=== PATIENT | female | born 1955 | race African-American/Black ===

== ENCOUNTER 2017-01-05 14:54 | Emergency (ER) | payer OTHER ==
[~2017-01-05] VITALS: Ht 154.9 cm; Wt 113.4 kg
[~2017-01-05 14:54] MED LIST: ATENOLOL 50MG T50 M1 PO; B-50 COMPLEX1 EAC1 PO; BUSPIRONE PO; CALCIUM 600 +1 EAC5 PO; CO Q10200 MG PO; CYMBALTA60 MG PO; DIPHENHYDRAMINE25 M3 PO; FISHOIL; FLAX SEED OIL1000 MG; IBUPROFEN 200200 M1 PO; K-DUR 20 MEQ T20 MEQ PO; LISINOPRIL40 MG PO; LORAZEPAM 1 MG T1 M1 PO; NEURONTIN 300M300 M2 PO; NORFLEX100 MG PO; PERCOCET 5-3251 EACH PO; PHENYTOIN SODI100 M3 PO; PRAVASTATIN SOD80 MG PO; SEROQUEL XR 30300 M1 PO; TYLENOL EX-STR500 M2 PO
[2017-01-05] MEDS ORDERED: MOBIC15 MG PO (15:59)
[2017-01-05] MEDS ORDERED: TRAMADOL 50 MG50 MG PO (16:00)
[2017-01-05 16:12] VITALS: BP 131/82
== END 2017-01-05 16:14 | disposition home or self-care (01) ==
LOC: ER 14:54
DX: M16.12 Unilateral primary osteoarthritis, left hip (principal); Z98.890 Other specified postprocedural states

== ENCOUNTER 2020-12-25 02:57 | Inpatient (IN) | payer OTHER ==
[~2020-12-25] VITALS: Ht 180.3 cm; Wt 99.8 kg
[~2020-12-25 02:57] MED LIST changes: +MOBIC15 MG PO; +TRAMADOL 50 MG50 MG PO
[2020-12-25 14:45] VITALS: BP 172/61
--- NOTE | 2020-12-25 14:46 | NUR ---
PATIENT IS AN 64 Y/O FEMALE WHO ARRIVED FROM [facility] TO THE [facility] UNIT AT 1155HOURS. PATIENT IS AXO X3-4 ABLE TO VOICE NEED. PATIENT IS ADMITTED FOR ULTERED MENTAL STATUS, AND HALLUCINATION PER REPORT. REPORT ALSO STATES PATIENT WAS FOUND DOWN AT HOME BY HER NEIGHBOR. PATIENT WAS SEEING PEOPLE IN HOSPITAL IN ROOM PER REPORT. LCTA, RESP EVEN/INLABORED, BS+X4, OBESED. APPETITE IS GOOD, PATIENT CONSUMED 100% LUNCH. PATIENT DENIES SUICIDAL/HOMICIDAL IDEATION, FOR DEPRESSION/ANXIETY, PATIEN TSTATES "NOT REALLY". OTHER MEDICAL HISTORY INCLUDES: SEIZURES, HTN, HYPOLIPIDEMIA, OBSTRUCTIVE SLEEP APNEA. PATIENT HAS [employer] PAPER ON FILE. THIS NURSE CALLED DPOA- (LUCÍA CUETO) WHO STATES TO CALL PATIENT'S DAUGHTER FOR CONSENT. (MINA SIDDIQI) WHOSE NAME IS ON THE DPOA PAPERWORK WITNESS CALLED TO GIVE CONSENT. CDL B DRIVER NOTIFIED THIS NURSE THAT PATIENT IS ABLE TO CONSENT TO TREATMENT SHE IS ALERT, AND ORIENTED. PATIENT DID CONSENT TO T[facility]ENT. PATIENT REPORTS SHE HAD A FALL AT HOME LAST WEEK, SHE AMBULATE WITH STEADY GAIT AT THIS TIME. DR. SEARS ORDERED ADMISSION MED, AND HAS MADE MEDICAL CONSULT. PATIENT ACTIVELY PARTICIPATED IN AFTERNOON GROUP THERAPY, NO HALLUCINATION NOTED AT THIS TIME, NO SIGN OF ACUTE DISTRESS NOTED, WILL MONITOR FOR SAFETY.
[2020-12-25 19:14] VITALS: BP 172/90
[2020-12-25 19:50] VITALS: BP 172/90
--- NOTE | 2020-12-25 23:49 | NUR ---
PATIENT CARE WAS RESUMED AT 1900.SHE IS ALERT AND ORIENTED. ABLE TO VERBALIZE HER CONCERN. DENIES PAINS/SI/AVH/HI. SHE TOOK HER MEDS WHOLE AND SHE IS AMBULATES. SHE WAS CONCERNED ABOUT HER BLOOD PRESSURE TO BE CONTROLLED. LUNGS ARE CLEAR BS ACTIVE X4 QUADS. Q 12MINUTES CHECKS ARE ONGOING. CONTINUE CARE
[2020-12-26 06:43] LABS: CHOLESTEROL 212 mg/dL (<200); HDL CHOLESTEROL 44 mg/dL (>40); LDL CHOLESTEROL 144 mg/dL (<100); TC:HDL 4.8 Ratio (Not establshd); TRIGLYCERIDE 121 mg/dL (<150); VLDL 24 mg/dL (<40)
[2020-12-26 07:04] LABS: SERUM ASSESSMENT Clear
--- NOTE | 2020-12-26 08:39 | NUR ---
Admit to [facility]. Pt noted admitted with psychosis, hallucinations. Noted in manic state upon admit. PMH: HTN, chronic back pain. Hx ETOH, on thiamine. Weights variable, 200-220#. Intake >90% x 2 meals on regular diet since admit. Follow weight and intake trends. Low nutrition risk.
[2020-12-26 09:15] VITALS: BP 192/88
[2020-12-26 09:34] VITALS: BP 171/90
--- NOTE | 2020-12-26 10:13 | NUR ---
1010 RESUMMED CARE FROM OVERNIGHT SHIFT THIS AM, PATIENT IN ROOM GETTING READY FOR BREAFAST. PATIENT ALERT ORIENTED TIMES 4 PATIENT DENIES SI/HI/AH/VH AT PRESENT. PATIENT CALM COOPERATIVE PATIENT PARTICIPATES IN GROUP NO BEHAVIORS. PATIENTS ABDOMEN SOFT BOWEL SOUNDS PRESENT PATIENTS LUNGS CLEAR; PATIENT CONCERNED ABOUT HIGH BP. GABRIEL CAME AND TALKED WITH PATIENT AND IS GOING TO ADD ANOTHER BP MEDICATION. WILL CONTINUE TO MONITOR PATIENT FOR SAFETY AND BEHAVIORS.
[2020-12-26 14:55] LABS: FOLIC ACID 14.6 ng/mL (8.6-58.9)
--- NOTE | 2020-12-26 17:51 | NUR ---
Dr. Reardon and HORTENCIA met with the Pt. Pt denied SI/HI. Pt denied AH/VH. Pt stated that she was going to go live with her daughter in [place], [place]. Hortencia talked to Pt about the importance of getting a PCP and psychiatrist when she arrives in [place]. Pt was concerned about her blood pressure. Dr. Reardon was able to speak with the hospitalist concerning the matter during this meeting. Ptexpressed appriciation for being on the unit. A phone call to Anita, Pt's daughter, was made. Anita did not answer and a was left requesting a call back. Anita later called back and spoke briefly about the plan for the Pt to move to [place] with her. Anita stated she would be in [facility] on Wednesday. Anita expressed concern about the Pt not being able to live alone and take medications properly. Dr. Amor expressed agreement with the Pt needing more support with medication management and it being beneficial for the Pt to live with family. During this call d/c was set for 12/28/2020 @ 11am.
[2020-12-26 19:33] VITALS: BP 186/78
--- NOTE | 2020-12-26 22:05 | NUR ---
Assumed patient care at 1900, patient sitting in day area interacting with peers and staff at that time. Pleasant and talkative. Reports poor sleep and requesting medication for sleep. Takes 150mg Trazodone at home. Called on-call and received order. Patient c/o of noncardiac chest pain from hitting her chest on a chair recently. Given prn pain medication. Patient otherwise denies anxiety/depression/SI/HI/AVH. Took meds whole without difficulty. Verbalizes appreciation of any assistance. Patient currently lying in bed with eyes closed, resting quietly. Will continue to monitor Q12 safety checks.
[2020-12-27 00:06] LABS: GLYCOHEMOGLOBIN (HGB A1C) 6.3 % (4.8-5.6)
--- NOTE | 2020-12-27 08:32 | H ---
[facility] [place] [address] HISTORY AND PHYSICAL Name: RASHEL CANDELARIO Room #: 520A-A ADM IN ..#: [id number] Admission: 12/25/20 Attend Phys: Kurt Amor DO Discharge: Date of : 55 Report #: [id number] THIS REPORT FOR: cc: Lucien Hein MD, Simon J. MD Kerstein,Kurt Schofield DO ~ DATE OF SERVICE: 12/25/2020 INPATIENT PSYCHIATRIC EVALUATION ATTENDING PSYCHIATRIST: Kurt Amor DO MATERIALS RECYCLER: Mya Moreira M.D. CHIEF COMPLAINT: "I passed out." SOURCES OF INFORMATION: Interview of the patient, records from [facility]. HISTORY OF PRESENT ILLNESS: This is a 65-year-old obese black female, . The patient was referred for concerns of psychosis, possible tammy from [facility], looks like she was admitted briefly medically. [facility] record states she was admitted for altered mental status after she was found down at home by her neighbors. Date of admission and presentation at [facility] was 12/23/2020 early in the day. The neighbor reported that the patient had recently been prescribed some pain medications and the neighbor suspected that the patient was inappropriately taking the medications. The patient was initially obtunded, but then became agitated upon awakening, acting out against nursing staff, and responding to auditory hallucinations. The patient's past medical history includes seizures, hypertension, hyperlipidemia, obstructive sleep apnea. PSYCHIATRIC HISTORY: Anxiety, PTSD, history of alcohol abuse. She reported at [facility], she was "found outside of my bed because I took these new pills that I was supposed to take me out." At [facility], she said the year was 2011. She denied current active or passive suicidal ideation, intent or plan. Feels somewhat depressed, but not down, so she is upbeat. Denies anhedonia, enjoys spending time with her girlfriends. The patient reports she has not slept in 3 days because "I stayed up for 3 days, I did not sleep last night or the 2 nights before that." Past psychiatric history includes diagnosis of bipolar disorder. She reports a remote psychiatric hospitalization in 1994 after a suicide attempt. She reports taking BuSpar 10 mg 3 times a day, Cymbalta 60 mg daily, gabapentin 600 mg t.i.d., Seroquel 75 in the morning and 400 at bedtime, trazodone 150 and sertraline [address] [address] HISTORY AND PHYSICAL Name: RASHEL CANDELARIO Room #: 520A-A [facility] IN ..#: [id number] Admission: 12/25/20 Attend Phys: Kurt Amor DO Discharge: Date of : 55 Report #: [id number] Denies recreational drug use. Drinks alcohol socially. Denies nicotine use. Lives by herself, 3 adult children, retired teacher, around 1994. She states she has been disabled due to mental health issues. EDUCATIONAL HISTORY: Reports a bachelor's degree in education, associate's degree in electronics. She last worked around the year 1999. Denied access to firearms. Diagnoses at [facility] were psychosis, unspecified; mood disorder. Her presentation was noted to be suggestive of bipolar 1 disorder. Psychiatrist at [facility] did increase Seroquel dose to 75 in the morning and 400 at bedtime, increase trazodone dose to 100 mg at bedtime. Continue Zoloft 100 mg daily, Cymbalta 60 mg daily, BuSpar 10 mg t.i.d. The patient's primary care physician is Dr. Mcgraw at [phone]. LABORATORY DATA: Sodium 133, potassium 4.4, chloride 101, bicarbonate 20, anion gap 16, BUN 39, creatinine 2.0, GFR 31.5, calcium 8.1, total bilirubin 0.4, AST 42, ALT 29, alkaline phosphatase 111. CK 464. Troponin less than 0.02. NT-proBNP 343, total protein 6.7, albumin 3.1. Hematology: White count 9.5, H and H on admission 11.6 and 34.9, platelet count 256. EKG at [facility] shows sinus rhythm with ventricular rate of 60 beats per minute. No ST or T-wave abnormality. BUN 22, creatinine 0.7 AST 45, ALT 30, alkaline phosphatase 123. UDS is positive for opiates. Acetaminophen less than 2. Alcohol less than 2. Urinalysis, trace leukocyte esterase, otherwise negative. PAST SURGICAL HISTORY: total hysterectomy, tonsillectomy, section x3, herniorrhaphy x3. Additional notes from records: Mother at age 71 from a massive myocardial infarction. She was hypotensive. Father at age 68 of prostate cancer. Sister had colon polyps and brother from brain cancer, another brother at age 68 of aneurysm. EKG from [facility], interval 180 milliseconds, QT 432 milliseconds, QTc was the same, normal sinus rhythm. . Interestingly, she used to be a professional ballerina had no laboratories this admission at [facility]. no imaging here at [facility]. PHYSICAL EXAMINATION: [facility] [address] [place] [address] HISTORY AND PHYSICAL Name: RASHEL CANDELARIO Room #: 520A-A [facility] IN [place]#: [id number] Admission: 12/25/20 Attend Phys: Kurt Amor DO Discharge: Date of : 55 Report #: [id number] VITAL SIGNS: Today, temperature 36.2, pulse 71, respirations 18, BP 132/81, O2 sat 100%. MUSCULOSKELETAL EXAM: Obese black female. Slow gait, normal station, had a pain complaining of 8/10. States she had a fall a few days ago, she fell of chect, hurts a bit PA was ruled out at [facility]. MENTAL STATUS EXAMINATION: This is a well-developed, obese black female. Attention fair. Concentration limited. Speech normal rate, volume increased. Thought process: Linear and goal directed. Thought content: Focused on the present, frequently laughing. mood/affect-euthymic, congruent Denied suicidal or homicidal ideation. No auditory, visual, or tactile hallucinations. Memory not formally tested. Insight and judgment limited. Fund of knowledge average range. FORMULATION: A 65-year-old black female transferred from [facility] due to concern for psychotic tammy. DIAGNOSES: At this time, unspecified psychosis, rule out bipolar 1 disorder, manic. Additional morbidities include ____, hypertension, obesity, obstructive sleep apnea, chronic back pain. PLAN: The patient is admitted voluntarily to the geriatric psychiatry unit in [facility]. The patient is not incapacitated, therefore DPOA is not enacted. CURRENT MEDICATIONS: Include thiamine 100 mg oral daily, sertraline 100 mg oral daily, potassium chloride 20 mEq daily for supplementation, meloxicam 7.5 mg oral daily for back pain, lisinopril 40 mg oral daily for hypertension, fluoxetine 60 mg oral daily, hydrochlorothiazide 25 mg oral daily, Seroquel 400 mg oral at bedtime, carvedilol 25 mg p.o. b.i.d. for htn , phenytoin 100 mg p.o. t.i.d., gabapentin 300 mg p.o. t.i.d., Cameron 5/325 p.o. q. 6 hours p.r.n. for breakthrough pain, otherwise house PRNs. Regarding her current medications, there are several with tammy generating features. At this point, I am inclined to discontinue the duloxetine as duplicity with an SSRI and SNRI. We will see how the patient does in the next 24-48 hours. I have a feeling this will be a short admission for her and certainly at this point, I am not finding symptoms are elements leading me to believe this was a suicide attempt. Once we did perform a [facility] Mental status examination, the patient scored 22/30 which is in mild cognitive impairment range. Certainly her tammy to be explanatory of this. [facility] [address] [place] [address] HISTORY AND PHYSICAL Name: RASHEL CANDELARIO Tracy Room #: 520A-A [facility] IN M.R.#: [id number] Admission: 12/25/20 Attend Phys: Kurt Amor DO Discharge: Date of : 55 Report #: [id number] Time spent on this case as well over 60 minutes, greater than 50% of time was spent in review of records, coordination of care. STRENGTHS: She is insured, has the DPOA, some support. WEAKNESSES: Multiple medical problems. <ELECTRONICALLY SIGNED> By: Kurt Amor DO 12/27/20 0832 1708 [id number] Kurt Amor DO /nt
[2020-12-27 10:05] VITALS: BP 174/81
--- NOTE | 2020-12-27 14:18 | NUR ---
Assumed pt care at 0700. Pt was in her room alert. Pt was alert and oriented x4. Assessments completed, vss. Denies si/hi, c/o pain. Pain meds administered as ordered. Took meds whole, no difficulty noted. AMbulates with a steady gait. No sign of acute distress noted upon assessments. PT refused breakfast. commercial underwriter had a one on one talk with pt. Pt expressed that she worried about her kids. Pt was irritable AM hours, but was redirectable. AT this time pt is calm and cooperative with care. WILL CONTINUE TO MONITOR.
[2020-12-27 19:37] VITALS: BP 141/78
--- NOTE | 2020-12-27 22:07 | NUR ---
Resumed patient care at 1900. Patient spends time in day area, very pleasant this evening. A&Ox4, excited to be going home tomorrow and seeing her daughter and granddaughter. Patient c/o 9/10 noncardiac chest pain due to a fall from home, stating she hit her chest on a chair when she fell. Patient given PRN hydrocodone and later PRN tylenol for pain. Also given PRN trazodone for sleep. Patient currently resting in bed with eyes closed.
[2020-12-28 09:22] VITALS: BP 230/130
[2020-12-28] MEDS ORDERED: ATORVASTATIN CA10 MG PO (10:05)
[2020-12-28] MEDS ORDERED: CATAPRES0.2 MG PO (10:10)
[2020-12-28] MEDS ORDERED: CARVEDILOL25 MG PO (10:12)
[2020-12-28] MEDS ORDERED: BENAZEPRIL HCL40 MG PO (10:12)
[2020-12-28] MEDS ORDERED: MOBIC7.5 MG PO (10:13)
[2020-12-28] MEDS ORDERED: HYDROCODON-ACE1 EAC7 PO (10:16)
[2020-12-28] MEDS ORDERED: DILANTIN100 MG PO (10:18)
[2020-12-28] MEDS ORDERED: NEURONTIN 400400 M1 PO (10:19)
[2020-12-28] MEDS ORDERED: ZOLOFT100 MG PO (10:19)
[2020-12-28] MEDS ORDERED: QUETIAPINE FUM400 MG PO (10:21)
[2020-12-28] MEDS ORDERED: K-DUR 20 MEQ T20 MEQ PO (10:22)
[2020-12-28] MEDS ORDERED: VITAMIN D325 MC2 PO (10:23)
[2020-12-28 10:32] VITALS: BP 230/130
--- NOTE | 2020-12-28 11:50 | NUR ---
Assumed pt care at 0700. Pt was alert oriented x4. Assessments completed, vss. PT denies si/hi, denies pain at this time. Took meds whole, no difficulty noted. AMbulates with a slow gait. Calm and coopertive with care. PT BLOOD pressure was 231/130 AM . Reassessed BP 200/100. DR Moreira was notified. Blood pressure meds administered as ordered. 1000 pt was reassessed (L)176/68, (R) ARM 187/68. 1135 PT WAS d/c HOME With belongings, d/c instrution. pt was transported via w/c to ER EXIT, ACCOMPANIED BY SERVICE ADMINISTRATOR AND PT DAUGHTER. D/C instrution given to both pt and her daughter.
--- NOTE | 2020-12-29 08:08 | D ---
[facility] [place] [address] DISCHARGE SUMMARY Name: RASHEL CANDELARIO Room #: 520A-A [facility] IN M.R.#: [id number] Admission: 12/25/20 Attend Phys: Kurt Amor DO Discharge: 12/28/20 Date of : 55 Report #: [id number] THIS REPORT FOR: cc: Lucien Hein MD, Simon J. MD Kerstein, Andrew H. DO ~ DATE OF SERVICE: 12/28/2020 INPATIENT PSYCHIATRIC DISCHARGE SUMMARY ATTENDING PSYCHIATRIST: Kurt Amor DO PROCESSING ENGINEER: Mya Moreira M.D. DISCHARGE DIAGNOSES: Unspecified psychosis, resolved; seizure disorder, mild neurocognitive disorder. ADDITIONAL DIAGNOSES: Obesity, body mass index 30.7; uncontrolled hypertension; elevated total and LDL cholesterol; chronic pain. The patient is discharging to her home with her daughter. Her daughter is then going to take her with her to [place], [place] to live with her. Community mental health center establishment in [place], [place] area is strongly recommended. Also, the patient needs very close primary care followup for uncontrolled hypertension in the next 1-2 weeks. Recommended a 2 g of sodium a day diet due to her hypertension. DISCHARGE MEDICATIONS: As follows: Atorvastatin 10 mg oral at bedtime for hyperlipidemia, clonidine hydrochloride 0.2 mg oral twice daily at 9:00 a.m. and 9 p.m. for hypertension, Coreg 25 mg oral twice daily with meals for hypertension, lisinopril 40 mg oral daily for hypertension, meloxicam 7.5 mg oral daily for arthritides, hydrocodone/acetaminophen 5/325 oral q. 6 hours for breakthrough pain 6-10 strictly, a 10-tablet prescription was given, Dilantin 100 mg oral 3 times a day. Additionally for pain, the patient is on gabapentin 400 mg oral 3 times a day, sertraline 100 mg oral daily for history of depression, Seroquel 400 mg oral at bedtime for sleep and psychosis, vitamin D3 1000 International Units oral daily for low vitamin D level of 20.1. LABORATORY DATA: Significant laboratories this admission, A1c 6.3, triglycerides 121, total cholesterol 212, LDL 144, HDL 44. B12 level normal at 739. Folate level normal at 14.6. Syphilis still pending. Hematology this admission, white count 9.3, H and H 11.8 and 34.5, platelet count 328. Chemistry: Sodium 137, potassium 3.5, chloride 99, bicarbonate 27, BUN 14, creatinine 0.8, estimated GFR 97, glucose 99, calcium 9.1. Troponin less than 0.4. Imaging this admission was none. Microbiology this admission was none. REASON FOR ADMISSION: A 65-year-old black female sent to us from [address] [address] DISCHARGE SUMMARY Name: RASHEL CANDELARIO Room #: 520A-A [facility] IN ..#: [id number] Admission: 12/25/20 Attend Phys: Kurt Amor DO Discharge: 12/28/20 Date of : 55 Report #: [id number]. The patient had a brief medical admission there. Apparently, she had passed out relating to a pain medication she was given, possibly fentanyl patch. The patient had been agitated, reportedly responding to auditory hallucinations. HOSPITAL COURSE: The patient was admitted to Geriatric Psychiatry Unit. She was not overtly psychotic or uncooperative. No physical or chemical restraints were required. The patient was focused a bit on her pain and was redirectable. It sounds like she has had some memory and functional decline over the last 6 to 12 months. [facility] Mental Status Examination was performed. The patient scored a 22/30. We got her daughter, Lorena on the phone who lives in [place], [place], outside of [place]. Lorena feels strongly about the patient coming to live with her. I had discussions both over the phone and in person on the day of discharge regarding the close medical psychiatric followup, the potential for evolution of full blown dementia, the sizable risk the patient has for cerebrovascular disease that would engender a vascular dementia picture above all else, need for sobriety from smoking, alcohol or recreational drugs. The daughter understood this. The patient is looking forward to living with her daughter and her grandchildren who are age 18 and 19. PHYSICAL EXAMINATION: VITAL SIGNS: On day of discharge, temperature 35.7, pulse 83, respirations 17. BP initially on the morning of discharge was quite high at 230/130. It was rechecked and found to be around 174 systolic. The patient's yesterday's blood pressure interestingly was 184/98 at 1703 yesterday, 141/78 at 2008. GENERAL: Well-developed, obese black female appearing stated age, wearing street clothes. MENTAL STATUS EXAMINATION: Well-developed black female. Attention fair. Concentration limited. Speech normal rate, volume, and tone. Thought process: Linear and goal directed. Thought content: Focused on discharge. Denied suicidal or homicidal ideation. Denied auditory, visual, or tactile hallucinations. Denied hopelessness, helplessness. Mood and affect were "good" congrent, euthymic. Memory not formally tested. Some impairment on SLUMS. Insight limited. Judgment: Fair to limited. Fund of knowledge: Below average. PROGNOSIS: For this patient is guarded given her age, uncontrolled hypertension, mild neurocognitive disorder diagnosis. TIME SPENT ON DISCHARGE ACTIVITIES: Well over 40 minutes given discussion with [facility] [address] [place] [address] DISCHARGE SUMMARY Name: RASHEL CANDELARIO Tracy Room #: 520A-A [facility] IN .R.#: [id number] Admission: 12/25/20 Attend Phys: Kurt Amor DO Discharge: 12/28/20 Date of : 55 Report #: [id number] patient, separate discussion with her daughter, who presented to the hospital to pick her up this Wednesday. <ELECTRONICALLY SIGNED> By: Kurt Amor DO 12/29/20 0808 1422 2035 Kurt Amor DO /nt
--- NOTE | 2020-12-29 17:54 | NUR ---
SW provided pt's daughter a copy of the SW Handout. Pt discharged to home with her daughter on 12/28/20. A second copy of the SW Handout was placed on patient's paper chart. No further follow up anticipated.
[2020-12-30 22:06] LABS: SYPHILIS AB Non Reactive (Non Reactive)
== END 2020-12-28 12:05 | disposition home or self-care (01) | DRG 885 ==
LOC: SBH
PROVIDERS: ADMIT Psychiatry & Neurology Psychiatry; ATTEND Psychiatry & Neurology Psychiatry
DX: F23 Brief psychotic disorder (principal); G31.84 Mild cognitive impairment of uncertain or unknown etiology; G40.909 Epilepsy, unspecified, not intractable, without status epilepticus; E66.9 Obesity, unspecified; I10 Essential (primary) hypertension; G89.29 Other chronic pain; E78.5 Hyperlipidemia, unspecified; M19.90 Unspecified osteoarthritis, unspecified site; G47.33 Obstructive sleep apnea (adult) (pediatric); F41.9 Anxiety disorder, unspecified; F43.10 Post-traumatic stress disorder, unspecified; F31.9 Bipolar disorder, unspecified; M54.9 Dorsalgia, unspecified; G47.00 Insomnia, unspecified; Z68.30 Body mass index [BMI] 30.0-30.9, adult; Z79.899 Other long term (current) drug therapy; Z63.5 Disruption of family by separation and divorce; Z91.5 Personal history of self-harm; Z90.710 Acquired absence of both cervix and uterus; Z98.891 History of uterine scar from previous surgery; Z82.49 Family history of ischemic heart disease and other diseases of the circulatory system; Z83.71 Family history of colonic polyps; Z80.8 Family history of malignant neoplasm of other organs or systems
CPT/HCPCS: 10880

== ENCOUNTER 2020-12-25 10:37 | Emergency (ER) | payer OTHER ==
[~2020-12-25] VITALS: Ht 160 cm; Wt 90.7 kg
[2020-12-25 10:38] VITALS: BP 130/88
== END 2020-12-25 11:40 ==
LOC: ER 10:37
DX: R07.89 Other chest pain (principal); Z20.822 Contact with and (suspected) exposure to COVID-19; Z79.2 Long term (current) use of antibiotics; Z79.899 Other long term (current) drug therapy

== ENCOUNTER 2021-04-22 00:16 | Emergency (ER) | payer OTHER ==
[~2021-04-22] VITALS: Ht 154.9 cm; Wt 99.8 kg
--- NOTE | ~2021-04-22 | EMS ---
[facility] [address] [place] [address] EMS Patient Care Report Name: RASHEL MAY Room #: REG SONALI Pascal#: [id number] Admission: 04/22/21 Attend Phys: Discharge: Date of : 55 Report #: [id number] THIS REPORT FOR: //name// Report Transmitted: 04/22/2021 00:46 EMS Care Summary [facility] MED-ACT Incident [id number] @ 04/21/2021 23:56 Incident Location [address] [place] [address] Patient RASHEL MAY Female, 65 Years 1955 Patient Address [address] [place] [address] Patient History Hypertension (HTN),Anxiety, Patient Medications Carvedilol, Seroquel, Trazodone, Chief Complaint Anxiety Disposition Transported No Lights/[place] Reason Unconscious/Fainting Transported To [facility] Narrative CHIEF COMPLAINT: Anxiety H.P.I.: Rashel May, a 65 y.o.f., reported she took half her prescribed dose of Seroquel along with her usual dose of trazodone and she feels anxious. [facility] [address] [place] [address] EMS Patient Care Report Name: RASHEL MAY Room #: REG ER Yvon.#: [id number] Admission: 04/22/21 Attend Phys: Discharge: Date of : 55 Report #: [id number] UPON ARRIVAL: Rashel was sitting on a bench in the lobby of [facility] talking to and being evaluated by [id number]. She was "amped up" but in no distress. DISPOSITION: She wanted transport to the closest hospital. [facility] told her it was [place], so she chose [place]. She was able to walk to the ambulance and get in and sit down on the stretcher unassisted. I secured her in the prescribed manner. Transport was non-emergent to [facility] as per her request. No incidents or changes en route. We were directed to room 4. She was able to transfer herself to the hospital bed. Dr. Magallon received my report. Initial Vitals @PTAP: 89,BP: 119/80,Pain: 0/10,GCS: 15,SpO2: 100, @00:13P: 84,R: 30,BP: 101/52,Pain: 0/10,GCS: 15,Temp: 98.1F,SpO2: 94,Revised Trauma: 11, Impression Anxiety reaction/Emotional upset Procedures @00:10 Surgical Mask on Patient Response: Unchanged Timeline ELECTRICAL LINE SPLICER,BP: 119/80 M,PULSE: 89,RR: R,SPO2: 100 Ox,ETCO2: ,BG: ,PAIN: 0,GCS: 15, 23:53,Call Received 23:53,Psap Call 23:56,Dispatched 23:57,En Route 00:03,On Scene 00:04,At Patient 00:09,Depart Scene 00:10,Surgical Mask on Patient,Response: Unchanged 00:13,BP: 101/52 M,PULSE: 84,RR: 30 R,SPO2: 94 Ox,ETCO2: ,BG: ,PAIN: 0,GCS: 15, 00:14,At Destination 00:28,Call Closed Disclaimer v1.1 Copyright 2020 [employer] This EMS Care Summary contains data elements from the applicable legal record (which may be displayed differently). It is designed to provide pertinent [address] [address] EMS Patient Care Report Name: RASHEL MAY Room #: REG [facility].#: [id number] Admission: 04/22/21 Attend Phys: Discharge: Date of : 55 Report #: [id number] information for the following purposes: continuity of care, clinical quality, and state data reporting. The complete legal record is available to ED staff and administrators of the receiving hospital in [employer] Patient Tracker. All data is provided "as is."
[~2021-04-22 00:16] MED LIST changes: +ATORVASTATIN CA10 MG PO; +BENAZEPRIL HCL40 MG PO; +CARVEDILOL25 MG PO; +CATAPRES0.2 MG PO; +DILANTIN100 MG PO; +HYDROCODON-ACE1 EAC7 PO; +MOBIC7.5 MG PO; +NEURONTIN 400400 M1 PO; +QUETIAPINE FUM400 MG PO; +VITAMIN D325 MC2 PO; +ZOLOFT100 MG PO
[2021-04-22 03:00] VITALS: BP 102/51
--- NOTE | 2021-04-22 08:21 | EKG ---
[place] [address] [place] [address] ELECTROCARDIOGRAM REPORT Name: RASHEL CANDELARIO Room #: DEP [facility]#: [id number] Admission: 04/22/21 Attend Phys: Discharge: 04/22/21 Date of : 55 Report #: [id number] [facility] ED Test Date: 2021-04-22 Test Time: 00:33:49 Pat Name: RASHEL CANDELARIO Department: Room: Gender: F Mortuary Beautician: TERRELL : 1955 Requested By: Chandan Magallon Order Number: [id number] MD: Barney Cotto Measurements Intervals [facility] Rate: 71 P: 0 UT: 59 QRS: 48 QRSD: 79 T: 12 QT: 478 QTc: 520 Interpretive Statements Sinus rhythm Nonspecific ST and T wave abnormality Prolonged QT interval Baseline wander in lead(s) V6 Compared to ECG 02/12/2007 22:46:16 Nonspecific change in the T wave abnormality Prolonged QT interval now present Sinus bradycardia no longer present Electronically Signed On 04-22-2021 8:21:37 BRUSH MAKER MACHINE by Barney Cotto [email or web address] <ELECTRONICALLY SIGNED> By: Barney Cotto MD, [facility] 04/22/21 0821 0033 003 Barney Cotto MD, [facility] /EPI
== END 2021-04-22 03:20 | disposition home or self-care (01) ==
LOC: ER 00:16
DX: F41.9 Anxiety disorder, unspecified (principal); I10 Essential (primary) hypertension; E78.5 Hyperlipidemia, unspecified; Z79.899 Other long term (current) drug therapy; Z98.890 Other specified postprocedural states